=== PATIENT | male | born 1965 | race Caucasian/White ===

== ENCOUNTER 2019-08-18 08:55 | Inpatient (IN) | payer SELFPAY ==
[~2019-08-18] VITALS: Ht 152.4 cm; Wt 69.9 kg
[2019-08-18] MEDS ORDERED: ONDANSETRON HCL 4MG/2ML INJ IV STA (09:03)
[2019-08-18] MEDS ORDERED: AMLODIPINE 5MG TABLET PO ONE (09:15)
[2019-08-18 09:26] LABS: BASOPHILS % 0.1 % (0.0-2.0); EOSINOPHILS % 0.1 % (0.0-5.0); HEMATOCRIT. 46.1 % (42.0-52.0); HEMOGLOBIN. 15.3 g/dL (14.0-18.0); LYMPHOCYTES % 10.4 % (20.0-50.0); MEAN CORPUSCULAR HEMOGLOBIN 30.6 pg (28.0-32.0); MEAN CORPUSCULAR VOLUME 92.1 fL (80.0-94.0); MEAN PLATELET VOLUME 10.5 fl (7.4-10.4); MONOCYTES % 3.4 % (2.0-8.0); PLATELET 198 x1000/uL (130-400); RED CELL DISTRIBUTION WIDTH 13.1 % (11.6-14.6)
[2019-08-18 09:34] LABS: CHLORIDE 111 mEq/L (98-107)
[2019-08-18 09:39] LABS: ETHANOL BLOOD < 10 mg/dL
[2019-08-18 09:51] LABS: CLARITY URINE CLEAR (CLEAR); COLOR URINE YELLOW (YELLOW); KETONES URINE NEGATIVE (NEGATIVE); LEUKOCYTE ESTERASE URINE NEGATIVE (NEGATIVE); NITRITE URINE NEGATIVE (NEGATIVE); OCCULT BLOOD URINE NEGATIVE (NEGATIVE); PROTEIN URINE NEGATIVE (NEGATIVE); SPECIFIC GRAVITY URINE 1.017 (1.005-1.030); UROBILINOGEN URINE 0.2 E.U./dL (0.2-1.0)
[2019-08-18] MEDS ORDERED: HYDRALAZINE 20MG/ML VIAL IV ONE (10:00)
[2019-08-18] MEDS ORDERED: ASPIRIN 325MG TABLET PO ONE (10:00)
[2019-08-18 10:09] LABS: *AMPHETAMINES SCREEN URINE NEGATIVE (NEGATIVE); *BARBITURATES SCREEN URINE NEGATIVE (NEGATIVE); *BENZODIAZEPINES SCREEN URINE NEGATIVE (NEGATIVE); *COCAINE SCREEN URINE NEGATIVE (NEGATIVE); METHADONE URINE SCREEN NEGATIVE (NEGATIVE); OPIATES URINE SCREEN NEGATIVE (NEGATIVE)
[2019-08-18 10:10] LABS: CANNABINOID URINE SCREEN NEGATIVE (NEGATIVE); PHENCYCLIDINE URINE SCREEN NEGATIVE (NEGATIVE)
[2019-08-18 15:06] VITALS: BP 158/85
[2019-08-18] MEDS ORDERED: METO-385 PO (15:35)
[2019-08-18 15:37] VITALS: BP 158/85
[2019-08-18 16:00] VITALS: BP 158/85
[2019-08-18] MEDS ORDERED: MAGNESIUM/ALUMINUM HYDROXIDE/SIMETHICONE 30ML UDC PO PRN (18:00)
[2019-08-18] MEDS ORDERED: DIPHENHYDRAMINE 50MG/ML VIAL IV PRN (18:00)
[2019-08-18] MEDS ORDERED: HYDRALAZINE 20MG/ML VIAL IV PRN (18:00)
[2019-08-18] MEDS ORDERED: CLONIDINE 0.1MG TABLET PO PRN (18:00)
[2019-08-18 20:00] VITALS: BP 111/72
[2019-08-18] MEDS: ACETAMINOPHEN 325MG TABLET PO PRN (20:21)
[2019-08-18] MEDS: METOPROLOL TARTRATE 50MG TABLET PO SCH (20:24)
[2019-08-18] MEDS ORDERED: ZOLPIDEM TARTRATE 5MG TABLET PO PRN (21:00)
[2019-08-18] MEDS: SODIUM CHLORIDE 0.9% INJ 3ML FLUSH IVF SCH (21:08)
[2019-08-19] VITALS: BP 120/75
[2019-08-19 04:00] VITALS: BP 116/63
[2019-08-19] MEDS: SODIUM CHLORIDE 0.9% INJ 3ML FLUSH IVF SCH ×2 (06:23→13:44)
[2019-08-19 08:00] VITALS: BP 156/99
[2019-08-19] MEDS: ONDANSETRON HCL 4MG/2ML INJ IV PRN ×2 (08:25→13:44)
[2019-08-19] MEDS: METOPROLOL TARTRATE 50MG TABLET PO SCH (08:37)
[2019-08-19 12:00] VITALS: BP 131/76
[2019-08-19] MEDS: ACETAMINOPHEN 325MG TABLET PO PRN (13:44)
[2019-08-19] MEDS: MECLIZINE 25MG TABLET PO PRN (13:53)
[2019-08-19 16:00] VITALS: BP 131/77
[2019-08-19 19:44] VITALS: BP 105/55
[2019-08-20] VITALS: BP 100/60
[2019-08-20 04:00] VITALS: BP 105/66
[2019-08-20] MEDS: SODIUM CHLORIDE 0.9% INJ 3ML FLUSH IVF SCH ×2 (05:48→13:32)
[2019-08-20 08:00] VITALS: BP 130/74
[2019-08-20] MEDS: MECLIZINE 25MG TABLET PO PRN (08:45)
[2019-08-20] MEDS ORDERED: NIFEDIPINE XL 30MG TAB PO SCH (09:00)
[2019-08-20 12:00] VITALS: BP 130/78
[2019-08-20] MEDS: ACETAMINOPHEN 325MG TABLET PO PRN (13:32)
[2019-08-20 16:00] VITALS: BP 139/87
[2019-08-20 16:40] VITALS: BP 139/87
== END 2019-08-20 17:35 | disposition home or self-care (01) | DRG 201 ==
LOC: ER 08:55 → 8WST 11:01 → EDBEDREQ 11:06 → ENRESERV 13:02
PROVIDERS: ADMIT Internal Medicine; ATTEND Internal Medicine
DX: R00.1 Bradycardia, unspecified (principal); G90.8 Other disorders of autonomic nervous system; I10 Essential (primary) hypertension; K30 Functional dyspepsia; G47.00 Insomnia, unspecified; R26.2 Difficulty in walking, not elsewhere classified; Z91.14 Patient's other noncompliance with medication regimen; Z90.49 Acquired absence of other specified parts of digestive tract
CPT/HCPCS: 36415; 71045; 80305; 80320; 81003; 83036; 84484; 93005; 99291; J0360; J2405; J8597; G0480